=== PATIENT | female | born 1995 | race Caucasian/White ===

== ENCOUNTER 2016-09-16 14:07 | Outpatient (CLI) ==
[2016-02-13 10:00] VITALS: BMI 38.2
--- NOTE | 2016-09-16 14:35 | DI ---
EXAM: Left foot three views HISTORY: Pain in left foot COMPARISON: None FINDINGS: The bones are normal. The joints are normal. No focal soft tissue abnormality. IMPERSSION: Normal examination.
--- NOTE | 2016-09-16 14:43 | DI ---
EXAM: Radiographs, left ankle HISTORY: Initial presentation for left ankle sprain. COMPARISON: None. TECHNIQUE: Three views. FINDINGS: Bone mineralization is normal. There is no fracture or dislocation. The joint spaces ar e maintained. No focal soft tissue abnormality is seen. IMPRESSION: No fracture or dislocation.
== END 2016-09-16 14:08 | disposition home or self-care (01) ==
LOC: RAD 14:07
PROVIDERS: ATTEND Nurse Practitioner Family
DX: S93.402A Sprain of unspecified ligament of left ankle, initial encounter (principal); S99.912A Unspecified injury of left ankle, initial encounter; M79.672 Pain in left foot; S99.922A Unspecified injury of left foot, initial encounter

== ENCOUNTER 2016-09-25 08:53 | Outpatient (CLI) ==
[2016-02-13 10:00] VITALS: BMI 38.2
--- NOTE | 2016-09-25 14:06 | MRI ---
EXAM: MRI left forefoot without contrast COMPARISON: Left foot radiographs 09/16/2016. HISTORY: Medial left foot and ankle pain after stepping in a hole. TECHNIQUE: Multiplanar noncontrast MR images of the left midfoot and forefoot were acquired using a 1.5 Tila magnet. FINDINGS: Degenerative changes of the first metatarsophalangeal joint with joint space narrowing. Chronic-appearing deformity with some flattening of the articular surface of the first metatarsal he ad which may represent sequela of old trauma without acute osseous injury that site. Small first me tatarsophalangeal joint effusion. Intermetatarsal bursitis involving the first interspace at the le ye of the metatarsophalangeal joints to a lesser extent the distal second and third interspaces. 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 Dorsal oste ophytes at the talonavicular joint. Intact Lisfranc ligament fibers are identified. There is subcutaneous edema along the plantar aspec t of the metatarsophalangeal joints without a focal soft tissue ulcer or drainable fluid collection. No full-thickness tendon tear or tendon retraction. IMPRESSION: 1. No acute osseous injury. Degenerative changes of the first metatarsophalangeal joint with chron ic-appearing deformity/flattening of the first metatarsal head which may represent sequela old traum a or chronic sequela of osteonecrosis. Small first metatarsophalangeal joint effusion. 2. Partial osseous/fibrous calcaneonavicular correlation with secondary degenerative changes. 3. Intermetatarsal bursitis. 4. Low-level subcutaneous edema.
== END 2016-09-25 08:54 | disposition home or self-care (01) ==
LOC: RAD 08:53
PROVIDERS: ATTEND Nurse Practitioner Family
DX: M79.672 Pain in left foot (principal); S99.922A Unspecified injury of left foot, initial encounter

== ENCOUNTER 2016-12-09 23:07 | Emergency (ER) ==
[2016-12-09 23:20] VITALS: TEMP 98.6; BMI 41.1
--- NOTE | 2016-12-09 23:25 | ED.PDOC ---
General ED Provider: Dr. ALLISON ZAMAN Chief Complaint: Earache Stated Complaint: Patient woke from sleep thinking something in the left ear, she did try with q tip, did not help. Time Seen by Physician: 23:22 Mode of Arrival: Walk-In Information Source: Patient Primary Care Provider: ALLISON ZAMAN[facility] Nursing and Triage Documentation Reviewed and Agree: Yes EENT Complaint Exam - Ear Complaint/Exam Symptoms Are: Still present Timing: Constant Initial Severity: Mild Current Severity: Mild Aggravating: Reports: Foreign body Alleviating: Reports: None Associated Signs and Symptoms: Denies: Ear trauma, Ear swelling, Discharge, Fever, Hearing loss, Bleeding, Sore throat, Headache, URI symptoms, Foreign body sensation, Rash, Pain to external ear, Pain to external face Ear Surgical History: None Vesicles to External Pinna: No Vesicles to Tragus: No TMJ Tenderness: None Mastoid Tenderness: None Tragal Tenderness: None External Canal: Normal Material in Canal: Present: Cerumen Differential Diagnoses: Foreign Body, URI Review of Systems - Review Of Systems Constitutional: Reports: No symptoms Eyes: Reports: No symptoms Ears, Nose, Mouth, Throat: Reports: No symptoms Respiratory: Reports: No symptoms Cardiac: Reports: No symptoms GI: Reports: No symptoms : Reports: No symptoms Musculoskeletal: Reports: No symptoms Skin: Reports: No symptoms Neurological: Reports: No symptoms Endocrine: Reports: No symptoms Hematologic/Lymphatic: Reports: No symptoms All Other Systems: Reviewed and Negative Past Medical History - Past Medical History Previously Healthy: Yes Endocrine: Reports: None Cardiovascular: Reports: None Respiratory: Reports: None Hematological: Reports: None Gastrointestinal: Reports: None Genitourinary: Reports: None Neuro/Psych: Reports: None Musculoskeletal: Reports: None Cancer: Reports: None Last Menstrual Period: 1 week ago - Surgical History General Surgical History: Reports: None - Family History Family History: Reports: Other (sister in law had developed cough after her and now resolved no one else with cough) - Social History Smoking Status: Never smoker Hx Substance Use: No Alcohol Screening: None - Immunizations Tetanus Shot up to Date: Yes Physical Exam - Physical Exam Appearance: Well-appearing, No pain distress, Well-nourished Eyes: JONO, EOMI, Conjunctiva clear ENT: Ears normal (no FB seen), Nose normal, Oropharynx normal Respiratory: Airway patent, Breath sounds clear, Breath sounds equal, Respirations nonlabored Cardiovascular: RRR, Pulses normal, No rub, No murmur GI/: Soft, Nontender, No masses, Bowel sounds normal, No Organomegaly Musculoskeletal: Normal strength, ROM intact, No edema, No calf tenderness Skin: Warm, Dry, Normal color Neurological: Sensation intact, Motor intact, Reflexes intact, Cranial nerves intact, Alert, Oriented Psychiatric: Affect appropriate, Mood appropriate Critical Care Note - Critical Care Note Total Time (mins): 0 Course - Course Vital Signs: Temp Pulse Resp BP Pulse Ox 12/09/16 23:08 98.6 F 105 H 20 148/100 H 98 Departure - Departure Time of Disposition: 23:26 Disposition: HOME SELF-CARE Discharge Problem: Ear problem Condition: Stable Pt referred to PMD for follow-up: Yes Additional Instructions: keep checking the blood pressure needs f/u with PMD re check blood pressure in 2-3 days. Allergies/Adverse Reactions: Allergies No Known Allergies Allergy (Verified 12/09/16 23:12) Home Medications: Ambulatory Orders Multivitamin 1 cap PO DAILY 10/05/15 Disposition Discussed With: Patient, Family
[2016-12-09 23:39] VITALS: BP 130/87
== END 2016-12-09 23:45 | disposition home or self-care (01) ==
LOC: ED 23:07
DX: H92.02 Otalgia, left ear (principal); R03.0 Elevated blood-pressure reading, without diagnosis of hypertension
CPT/HCPCS: 99282

== ENCOUNTER 2016-12-24 09:21 | Outpatient (CLI) ==
--- NOTE | 2016-12-24 09:57 | DI ---
EXAM: Right foot three views HISTORY: Plantar fascial fibromatosis COMPARISON: None FINDINGS: The bones are normal. The joints are normal. No focal soft tissue abnormality. IMPERSSION: Normal examination.
== END 2016-12-24 09:22 | disposition home or self-care (01) ==
LOC: RAD 09:21
PROVIDERS: ATTEND Nurse Practitioner Family
DX: M72.2 Plantar fascial fibromatosis (principal)

== ENCOUNTER 2017-08-29 13:23 | Outpatient (CLI) | END 2017-08-29 13:24 | disposition home or self-care (01) | LOC: LAB 13:23 | PROVIDERS: ATTEND Emergency Medicine | DX: R68.89 Other general symptoms and signs (principal); J06.9 Acute upper respiratory infection, unspecified | CPT/HCPCS: 87502; 87651 ==

== ENCOUNTER 2018-07-09 11:11 | Emergency (ER) ==
[2018-07-09 11:14] VITALS: BP 120/82; TEMP 97.6; BMI 40.2
--- NOTE | 2018-07-09 11:37 | ED.PDOC ---
General ED Provider: Dr. KOBY WHITFIELD Chief Complaint: Dizziness Stated Complaint: 23 y/o Female patient CC Dizziness and Rt Sided orbital pain and headache. She states was attempting into get her Car, striking the side of her head/lateral orbial/zygomatic region againt the door frame. States she felt stunned, had a blackout moment but did not lose consciousness. Has been experiencing dizziness ever since and has not felt well. Was seen by Nicole at clinic today who referred to ER for evaluation. Time Seen by Physician: 12:05 Mode of Arrival: Walk-In Information Source: Patient Exam Limitations: No limitations Primary Care Provider: NICOLE NÚÑEZ Seen Within Last 72 Hours for Same Complaint By: Clinic Nursing and Triage Documentation Reviewed and Agree: Yes Does patient meet sepsis criteria?: No System Inflammatory Response Syndrome: Not Applicable Sepsis Protocol: For patient's 13 years and over: Temp is 96.8 and below OR 101 and greater Pulse >90 BPM Resp >20/minute Acutely Altered Mental Status Are patient's symptoms suggestive of a new infection, such as: -Pneumonia -Skin, Soft Tissue -Endocarditis -UTI -Bone, Joint Infection -Implantable Device -Acute Abdominal Infection -Wound Infection -Meningitis -Blood Stream Catheter Infection -Unknown Neurological Complaint Exam - Dizziness Complaint/Exam Last Known Well: Before incident Onset: Sudden Duration: 1 Timing: Intermittent Episodes Lasting: Minutes Initial Severity: Severe Current Severity: Mild Character: Reports: Lightheaded Aggravating: Reports: Position change Alleviating: Reports: Rest, Closing eyes Associated Signs and Symptoms: Reports: Nausea Cardiac Risk Factors: Reports: None CVA Risk Factors: Reports: None Related Surgical History: Reports: None JVD Present: No Carotid Bruit Present: No Nystagmus Present: No Gag Reflex Present: Yes Meningeal Signs Positive: No Focal Weakness: Present: None Focal Sensory Loss: Present: None Gait: Normal [id number]: Normal Findings Romberg Test Positive: No Heel to Toe Normal: Yes Differential Diagnoses: Anxiety, Vasovagal reaction, Other (blunt trauma) Review of Systems - Review Of Systems Constitutional: Reports: No symptoms Eyes: Reports: No symptoms Ears, Nose, Mouth, Throat: Reports: No symptoms Respiratory: Reports: No symptoms Cardiac: Reports: No symptoms GI: Reports: No symptoms : Reports: No symptoms Musculoskeletal: Reports: No symptoms Skin: Reports: No symptoms Neurological: Reports: No symptoms Endocrine: Reports: No symptoms Hematologic/Lymphatic: Reports: No symptoms All Other Systems: Reviewed and Negative Past Medical History - Past Medical History Previously Healthy: Yes Endocrine: Reports: None Cardiovascular: Reports: None Respiratory: Reports: None Hematological: Reports: None Gastrointestinal: Reports: None Genitourinary: Reports: None Neuro/Psych: Reports: None Musculoskeletal: Reports: None Cancer: Reports: None Last Menstrual Period: 06/18/19 - Surgical History General Surgical History: Reports: None - Family History Family History: Reports: Other (sister in law had developed cough after her and now resolved no one else with cough) - Social History Smoking Status: Never smoker Hx Substance Use: No Alcohol Screening: None - Immunizations Tetanus Shot up to Date: No Physical Exam - Physical Exam Appearance: Well-appearing, No pain distress, Well-nourished Eyes: JONO, EOMI, Conjunctiva clear ENT: Ears normal, Nose normal, Oropharynx normal Respiratory: Airway patent, Breath sounds clear, Breath sounds equal, Respirations nonlabored Cardiovascular: RRR, Pulses normal, No rub, No murmur GI/: Soft, Nontender, No masses, Bowel sounds normal, No Organomegaly Musculoskeletal: Normal strength, ROM intact, No edema, No calf tenderness Skin: Warm, Dry, Normal color Neurological: Sensation intact, Motor intact, Reflexes intact, Cranial nerves intact, Alert, Oriented Psychiatric: Affect appropriate, Mood appropriate Re-Evaluation - Re-Evaluation Time of Re-Evaluation: 14:05 Status: Improved Vital Signs Stable: Yes Appearance: NAD Lungs: Clear Skin: Warm and Dry Neuro: Alert and Oriented X3 CV: RRR Critical Care Note - Critical Care Note Total Time (mins): 0 Course - Course Hematology/Chemistry: 07/09/18 12:30 07/09/18 12:30 Orders, Labs, Meds: Lab Review 07/09/18 07/09/18 07/09/18 12:25 12:25 12:30 WBC 9.96 RBC 4.70 Hgb 13.1 Hct 38.5 MCV 81.9 MCH 27.9 MCHC 34.0 RDW Coeff of Garett 12.5 Plt Count 342 Immature Gran % (Auto) 0.7 Neut % (Auto) 49.5 Lymph % (Auto) 39.0 Burt % (Auto) 8.7 Eos % (Auto) 1.6 Baso % (Auto) 0.5 Immature Gran # (Auto) 0.1 Neut # (Auto) 4.9 Lymph # (Auto) 3.9 H Burt # (Auto) 0.9 Eos # (Auto) 0.2 Baso # (Auto) 0.1 Sodium Potassium Chloride Carbon Dioxide Anion Gap BUN Creatinine Estimated GFR (MDRD) BUN/Creatinine Ratio Glucose Calcium Total Bilirubin AST ALT Alkaline Phosphatase Total Protein Albumin Globulin Albumin/Globulin Ratio Urine Color Yellow Urine Clarity Cloudy Urine pH 7.0 Ur Specific [place] 1.025 Urine Protein 2+ Urine Glucose (UA) Negative Urine Ketones Trace Urine Blood Trace-lysed Urine Nitrite Negative Urine Bilirubin Negative Urine Urobilinogen 2.0 Ur Leukocyte Esterase 1+ Urine Microscopic RBC 0-2 Urine Microscopic WBC 2-5 Ur Squamous Epith Cells 50-100 Urine Bacteria 1+ Urine Test Negative 07/09/18 12:30 WBC RBC Hgb Hct MCV MCH MCHC RDW Coeff of Garett Plt Count Immature Gran % (Auto) Neut % (Auto) Lymph % (Auto) Burt % (Auto) Eos % (Auto) Baso % (Auto) Immature Gran # (Auto) Neut # (Auto) Lymph # (Auto) Burt # (Auto) Eos # (Auto) Baso # (Auto) Sodium 139.5 Potassium 3.49 L Chloride 101.8 Carbon Dioxide 31.5 H Anion Gap 9.69 BUN 6.3 L Creatinine 0.79 Estimated GFR (MDRD) 89.00 BUN/Creatinine Ratio 7.97 Glucose 83.1 Calcium 9.04 Total Bilirubin 0.45 AST 46.2 H ALT 29.5 Alkaline Phosphatase 62.5 Total Protein 7.80 Albumin 4.49 Globulin 3.31 Albumin/Globulin Ratio 1.35 Urine Color Urine Clarity Urine pH Ur Specific [place] Urine Protein Urine Glucose (UA) Urine Ketones Urine Blood Urine Nitrite Urine Bilirubin Urine Urobilinogen Ur Leukocyte Esterase Urine Microscopic RBC Urine Microscopic WBC Ur Squamous Epith Cells Urine Bacteria Urine Test Orders Category Date Time Status CBC W/ AUTO DIFF Stat LAB 07/09/18 12:30 Completed CMP [COMPREHENSIVE METABOLIC PANEL] Stat LAB 07/09/18 12:30 Completed UA [URINALYSIS C & S IF INDICATED] Stat LAB 07/09/18 12:25 Completed URINE CULTURE Stat LAB 07/09/18 12:25 Completed URINE Stat LAB 07/09/18 12:[address] HEAD W/O CONTRAST Stat RADS 07/09/18 12:09 Completed Vital Signs: Temp Pulse Resp BP Pulse Ox 07/09/18 11:11 97.6 F 80 16 120/82 97 Departure - Departure Time of Disposition: 13:45 Disposition: HOME SELF-CARE Discharge Problem: Blunt force injury, Contusion of right eyelid Instructions: Contusion in Adults (ED) Condition: Good Pt referred to PMD for follow-up: Yes (1wk) IPMP verified?: No Additional Instructions: NO Work today Ice to area of soreness Ibuprofen for pain as directed Prescriptions: Meclizine HCl [Antivert] 25 mg PO TID PRN #10 tablet PRN Reason: Nausea or dizziness Allergies/Adverse Reactions: Allergies No Known Allergies Allergy (Verified 07/09/18 11:14) Home Medications: Ambulatory Orders Meclizine HCl [Antivert] 25 mg PO TID PRN #10 tablet 07/09/18 Disposition Discussed With: Patient
[2018-07-09 13:06] LABS: URINE PREGNANCY TEST NEGATIVE (NEGATIVE)
--- NOTE | 2018-07-09 13:13 | CT ---
EXAM: CT head without contrast. HISTORY: Initial presentation for right-sided head/zygomatic trauma. COMPARISON: None available. TECHNIQUE: Multiple axial images of the brain were obtained from the skull base through the vertex w ithout intravenous contrast. Multiplanar reformats were provided. FINDINGS: There is no intracranial hemorrhage or extraaxial collection. The tobias-white differentiat ion is maintained without evidence for acute large vascular territory infarction. The cortical sulci and basal cisterns are well visualized. There is no hydrocephalus, mass effect, or midline shift. The paranasal sinuses and mastoid air cells are clear. The calvarium is intact. IMPRESSION: No acute intracranial abnormality.
== END 2018-07-09 14:05 | disposition home or self-care (01) ==
LOC: ED 11:11
DX: S00.11XA Contusion of right eyelid and periocular area, initial encounter (principal); R42 Dizziness and giddiness; R51 Headache; W22.8XXA Striking against or struck by other objects, initial encounter
CPT/HCPCS: 36415; 80053; 81001; 81025; 85025; 87086; 99283

== ENCOUNTER 2018-09-09 12:23 | Emergency (ER) | payer MEDICAID, OTHER ==
[2018-09-09 12:28] VITALS: BP 136/84; TEMP 96.8; BMI 39.8
--- NOTE | 2018-09-09 13:02 | ED.PDOC ---
General ED Provider: Dr. MARIA M SALINAS Chief Complaint: Tooth Problem Stated Complaint: DENTAL PAIN Time Seen by Physician: 12:30 Mode of Arrival: Walk-In Information Source: Patient Exam Limitations: No limitations Primary Care Provider: NICOLE NÚÑEZ Nursing and Triage Documentation Reviewed and Agree: Yes Does patient meet sepsis criteria?: No System Inflammatory Response Syndrome: Not Applicable Sepsis Protocol: For patient's 13 years and over: Temp is 96.8 and below OR 101 and greater Pulse >90 BPM Resp >20/minute Acutely Altered Mental Status Are patient's symptoms suggestive of a new infection, such as: -Pneumonia -Skin, Soft Tissue -Endocarditis -UTI -Bone, Joint Infection -Implantable Device -Acute Abdominal Infection -Wound Infection -Meningitis -Blood Stream Catheter Infection -Unknown EENT Complaint Exam - Dental/Oral Complaint/Exam Mechanism of Injury: No known trauma Onset/Duration: TODAY Symptoms Are: Still present Timing: Constant Initial Severity: Mild Current Severity: Mild Character: Reports: Dull Aggravating: Reports: None Alleviating: Reports: None Associated Signs and Symptoms: Denies: Swelling, Discharge, Fever, Foul odor, Foul taste in mouth Related History: Reports: Similar episode Cardiac Risk Factors: Reports: None Dental/Oral Surgical History: Reports: None Tooth Findings: Present: Gross decay, Gross caries, Dental fracture Cervical Lymphadenopathy Present: No Facial Swelling Present: No Bleeding Present: No Oropharynx Findings: Absent: Clots, Active bleeding Septal Hematoma: No Foreign Body Present: No Dysphagia Present: No Drooling Present: No Asymmetrical Tonsillar Swelling Present: No Uvula Midline: Yes Malorie-tonsillar Fluctuence: No Trismus Present: No Palatal Petechiae Present: No Scarlatinaform Rash Present: No Lesions: Absent: Lip, Gums, Tongue, Buccal Mucosa, Pharynx Teeth Picture: 1 - DECAY Differential Diagnoses: Fractured Tooth Review of Systems - Review Of Systems Constitutional: Reports: No symptoms Eyes: Reports: No symptoms Ears, Nose, Mouth, Throat: Reports: No symptoms Respiratory: Reports: No symptoms Cardiac: Reports: No symptoms GI: Reports: No symptoms : Reports: No symptoms Musculoskeletal: Reports: No symptoms Skin: Reports: No symptoms Neurological: Reports: No symptoms Endocrine: Reports: No symptoms Hematologic/Lymphatic: Reports: No symptoms All Other Systems: Reviewed and Negative Past Medical History - Past Medical History Previously Healthy: Yes Endocrine: Reports: None Cardiovascular: Reports: None Respiratory: Reports: None Hematological: Reports: None Gastrointestinal: Reports: None Genitourinary: Reports: None Neuro/Psych: Reports: None Musculoskeletal: Reports: None Cancer: Reports: None Last Menstrual Period: 09-05-2018 - Surgical History General Surgical History: Reports: None - Family History Family History: Reports: Other (sister in law had developed cough after her and now resolved no one else with cough) - Social History Smoking Status: Never smoker Hx Substance Use: No Alcohol Screening: None Physical Exam - Physical Exam Appearance: Well-appearing, No pain distress, Well-nourished Eyes: JONO, EOMI, Conjunctiva clear ENT: Ears normal, Nose normal, Oropharynx normal Respiratory: Airway patent, Breath sounds clear, Breath sounds equal, Respirations nonlabored Cardiovascular: RRR, Pulses normal, No rub, No murmur GI/: Soft, Nontender, No masses, Bowel sounds normal, No Organomegaly Musculoskeletal: Normal strength, ROM intact, No edema, No calf tenderness Skin: Warm, Dry, Normal color Neurological: Sensation intact, Motor intact, Reflexes intact, Cranial nerves intact, Alert, Oriented Psychiatric: Affect appropriate, Mood appropriate Critical Care Note - Critical Care Note Total Time (mins): 0 Course - Course Vital Signs: Temp Pulse Resp BP Pulse Ox 09/09/18 12:23 96.8 F L 77 20 136/84 98 Departure - Departure Time of Disposition: 13:02 Disposition: HOME SELF-CARE Discharge Problem: Toothache Instructions: Toothache (ED) Condition: Good Pt referred to PMD for follow-up: Yes IPMP verified?: No Allergies/Adverse Reactions: Allergies No Known Allergies Allergy (Verified 09/09/18 12:29) Home Medications: Ambulatory Orders 1 [No Reported Medications] 09/09/18 Disposition Discussed With: Patient
== END 2018-09-09 13:13 | disposition home or self-care (01) ==
LOC: ED 12:23
DX: K08.89 Other specified disorders of teeth and supporting structures (principal); K02.7 Dental root caries; S02.5XXA Fracture of tooth (traumatic), initial encounter for closed fracture
CPT/HCPCS: 99282

== ENCOUNTER 2018-10-04 06:26 | Emergency (ER) ==
[2018-10-04 06:33] VITALS: BP 141/85; TEMP 98.2; BMI 41.1
--- NOTE | 2018-10-04 06:39 | ED.PDOC ---
General ED Provider: Dr. KOBY WHITFIELD Chief Complaint: Tooth Problem Stated Complaint: Has bad tooth ache. Not releived by tylenol or advil. Time Seen by Physician: 06:30 Mode of Arrival: Walk-In Information Source: Patient Exam Limitations: No limitations Primary Care Provider: NICOLE NÚÑEZ Nursing and Triage Documentation Reviewed and Agree: Yes Does patient meet sepsis criteria?: No System Inflammatory Response Syndrome: Not Applicable Sepsis Protocol: For patient's 13 years and over: Temp is 96.8 and below OR 101 and greater Pulse >90 BPM Resp >20/minute Acutely Altered Mental Status Are patient's symptoms suggestive of a new infection, such as: -Pneumonia -Skin, Soft Tissue -Endocarditis -UTI -Bone, Joint Infection -Implantable Device -Acute Abdominal Infection -Wound Infection -Meningitis -Blood Stream Catheter Infection -Unknown EENT Complaint Exam - Dental/Oral Complaint/Exam Mechanism of Injury: Unknown Symptoms Are: Still present Timing: Constant Initial Severity: Moderate Current Severity: Severe Character: Reports: Aching, Throbbing Aggravating: Reports: Cold, Chewing Alleviating: Reports: None Associated Signs and Symptoms: Denies: Swelling, Discharge, Fever, Foul odor, Foul taste in mouth Related History: Reports: Similar episode Cardiac Risk Factors: Reports: None Dental/Oral Surgical History: Reports: None Tooth Findings: Present: Percussion tenderness, Gross caries Cervical Lymphadenopathy Present: No Facial Swelling Present: No Bleeding Present: No Septal Hematoma: No Foreign Body Present: No Dysphagia Present: No Drooling Present: No Asymmetrical Tonsillar Swelling Present: No Uvula Midline: No Malorie-tonsillar Fluctuence: No Trismus Present: No Palatal Petechiae Present: No Scarlatinaform Rash Present: No Lesions: Absent: Lip, Gums, Tongue, Buccal Mucosa, Pharynx Exanthem: Absent: Lip, Gums, Tongue, Buccal Mucosa, Pharynx Vesicles: Absent: Lip, Gums, Tongue, Buccal Mucosa, Pharynx Differential Diagnoses: Dental Caries Review of Systems - Review Of Systems Constitutional: Reports: No symptoms Eyes: Reports: No symptoms Ears, Nose, Mouth, Throat: Reports: No symptoms, Mouth pain Respiratory: Reports: No symptoms Cardiac: Reports: No symptoms GI: Reports: No symptoms : Reports: No symptoms Musculoskeletal: Reports: No symptoms Skin: Reports: No symptoms Neurological: Reports: No symptoms Endocrine: Reports: No symptoms Hematologic/Lymphatic: Reports: No symptoms All Other Systems: Reviewed and Negative Past Medical History - Past Medical History Previously Healthy: Yes Endocrine: Reports: None Cardiovascular: Reports: None Respiratory: Reports: None Hematological: Reports: None Gastrointestinal: Reports: None Genitourinary: Reports: None Neuro/Psych: Reports: None Musculoskeletal: Reports: None Cancer: Reports: None Last Menstrual Period: now - Surgical History General Surgical History: Reports: None - Family History Family History: Reports: Other (sister in law had developed cough after her and now resolved no one else with cough) - Social History Smoking Status: Never smoker Hx Substance Use: No Alcohol Screening: None - Immunizations Tetanus Shot up to Date: Yes Physical Exam - Physical Exam Appearance: Well-appearing, No pain distress, Well-nourished Ill-appearing: None Pain Distress: Mild Eyes: JONO, EOMI, Conjunctiva clear ENT: Ears normal, Nose normal, Oropharynx normal (Open cavity tender to touch rt molar 1 -maxillary region ) Respiratory: Airway patent, Breath sounds clear, Breath sounds equal, Respirations nonlabored Cardiovascular: RRR, Pulses normal, No rub, No murmur GI/: Soft, Nontender, No masses, Bowel sounds normal, No Organomegaly Musculoskeletal: Normal strength, ROM intact, No edema, No calf tenderness Skin: Warm, Dry, Normal color Neurological: Sensation intact, Motor intact, Reflexes intact, Cranial nerves intact, Alert, Oriented Psychiatric: Affect appropriate, Mood appropriate Critical Care Note - Critical Care Note Total Time (mins): 0 Course - Course Vital Signs: Temp Pulse Resp BP Pulse Ox 10/04/18 06:27 98.2 F 70 20 141/85 H 98 Departure - Departure Time of Disposition: 06:50 Disposition: HOME SELF-CARE Discharge Problem: Toothache, Dental abscess Instructions: Dental Abscess (ED), Toothache (ED) Condition: Good Pt referred to PMD for follow-up: Yes (See dentist kirby) IPMP verified?: No Additional Instructions: Take meds as directed Follow up with Dentist Rinse mouth with warm salt water Allergies/Adverse Reactions: Allergies No Known Allergies Allergy (Verified 10/04/18 06:32) Home Medications: Ambulatory Orders Amoxicillin 875 mg PO BID #20 tablet 10/04/18 Hydrocodone Bit/Acetaminophen [[place] 5-325] 1 each PO Q4HR PRN #15 tablet Disposition Discussed With: Patient
== END 2018-10-04 07:10 | disposition home or self-care (01) ==
LOC: ED 06:26
DX: K08.89 Other specified disorders of teeth and supporting structures (principal); K04.7 Periapical abscess without sinus; K02.7 Dental root caries
CPT/HCPCS: 99282

== ENCOUNTER 2019-02-10 14:02 | Emergency (ER) ==
[2019-02-10 14:08] VITALS: BP 137/89; TEMP 98.4; BMI 39.7
[2019-02-10] MEDS ORDERED: SODIUM CHLORIDE 1,000 ML IV STA (14:34)
--- NOTE | 2019-02-10 15:17 | US ---
EXAM: ULTRASOUND ABDOMEN LIMITED HISTORY: Abdominal pain FINDINGS: Ultrasound abdomen, limited. Dhillon-scale ultrasound and color Doppler was performed. Live r size was measured at 11.6 cm, within normal limits. The liver parenchyma demonstrated normal sonogr aphic appearance without evidence of intrahepatic biliary dilatation or focal lesion. Patent and hep atopedal main portal vein. There are multiple stones within the gallbladder and probable small volume gallbladder sludge as wel l. The gallbladder wall thickness remained within normal limits at 0.15 cm. The common bile duct di ameter was measured at 0.87 cm which is dilated. No ascites identified. Visualized pancreas was wit hin normal limits. Survey of the right kidney revealed no hydronephrosis. IMPRESSION: 1. Multiple gallstones with no gallbladder wall thickening or ascites although there has common bile duct dilatation.
--- NOTE | 2019-02-10 15:43 | ED.PDOC ---
General ED Provider: Dr. MARIA M SALINAS Chief Complaint: Abdominal Pain Stated Complaint: abdominal pain Time Seen by Physician: 14:00 (seen with her nurse at all times denied injury) Mode of Arrival: Walk-In Information Source: Patient, Assisted Living Exam Limitations: No limitations Primary Care Provider: NICOLE NÚÑEZ Nursing and Triage Documentation Reviewed and Agree: Yes Does patient meet sepsis criteria?: No System Inflammatory Response Syndrome: Not Applicable Sepsis Protocol: For patient's 13 years and over: Temp is 96.8 and below OR 101 and greater Pulse >90 BPM Resp >20/minute Acutely Altered Mental Status Are patient's symptoms suggestive of a new infection, such as: -Pneumonia -Skin, Soft Tissue -Endocarditis -UTI -Bone, Joint Infection -Implantable Device -Acute Abdominal Infection -Wound Infection -Meningitis -Blood Stream Catheter Infection -Unknown GI Complaint Exam - Abdominal Pain Complaint/Exam Onset: Gradual Duration: this morning Symptoms Are: Resolved Timing: Intermittent Initial Severity: Moderate Current Severity: None Location of Pain: RUQ, LLQ, Epigastric Radiates To: Denies: Chest, Back, Flank, LLQ, RLQ, Inguinal Character: Reports: Dull, Aching Aggravating: Reports: None Alleviating: Reports: Spontaneous resolution Associated Signs and Symptoms: Denies: Diaphoresis, Fever, Cough, Chest pain, Dizziness, Back pain, Constipation, Blood in stool, Dysuria, Urinary frequency, Decreased urine output, Decreased appetite, Vaginal bleeding, Vaginal discharge , Nausea, Vomiting, Diarrhea, Sore throat, Decreased activity AAA Risk Factors: Reports: None Cardiac Risk Factors: Reports: None Ectopic Risk Factors: Reports: None Ovarian Torsion Risk Factors: Reports: None Surgical Obstruction Risk Factors: Reports: None Related Surgical History: Reports: None Patient Rh Status: Unknown Abdominal Findings: Present: None, Other (no pelvic exam done) Female Body Picture: 1 - no localized guarding orrebound Differential Diagnoses: Constipation Review of Systems - Review Of Systems Constitutional: Reports: No symptoms Eyes: Reports: No symptoms Ears, Nose, Mouth, Throat: Reports: No symptoms Respiratory: Reports: No symptoms Cardiac: Reports: No symptoms GI: Reports: Abdominal pain : Reports: No symptoms Musculoskeletal: Reports: No symptoms Skin: Reports: No symptoms Neurological: Reports: No symptoms Endocrine: Reports: No symptoms Hematologic/Lymphatic: Reports: No symptoms All Other Systems: Reviewed and Negative Past Medical History - Past Medical History Previously Healthy: Yes Endocrine: Reports: None Cardiovascular: Reports: None Respiratory: Reports: None Hematological: Reports: None Gastrointestinal: Reports: None Genitourinary: Reports: None Neuro/Psych: Reports: None Musculoskeletal: Reports: None Cancer: Reports: None Last Menstrual Period: Varies (Approximately 2 months ago) - Surgical History General Surgical History: Reports: None - Family History Family History: Reports: Other (sister in law had developed cough after her and now resolved no one else with cough) - Social History Smoking Status: Never smoker Hx Substance Use: Yes (Marijuana Occasionally) Alcohol Screening: None - Immunizations Tetanus Shot up to Date: Yes Physical Exam - Physical Exam Appearance: Well-appearing, No pain distress, Well-nourished Eyes: JONO, EOMI, Conjunctiva clear ENT: Ears normal, Nose normal, Oropharynx normal Respiratory: Airway patent, Breath sounds clear, Breath sounds equal, Respirations nonlabored Cardiovascular: RRR, Pulses normal, No rub, No murmur GI/: Soft, Nontender, No masses, Bowel sounds normal, No Organomegaly Musculoskeletal: Normal strength, ROM intact, No edema, No calf tenderness Skin: Warm, Dry, Normal color Neurological: Sensation intact, Motor intact, Reflexes intact, Cranial nerves intact, Alert, Oriented Psychiatric: Affect appropriate, Mood appropriate Interpretation - Radiology Interpretation Radiology Results: Positive (multiple gall stones) Critical Care Note - Critical Care Note Total Time (mins): 0 Course - Course Hematology/Chemistry: 02/10/19 14:42 02/10/19 14:42 Orders, Labs, Meds: Lab Review 02/10/19 02/10/19 02/10/19 14:42 14:42 14:42 WBC 9.25 RBC 5.02 Hgb 14.1 Hct 41.2 MCV 82.1 MCH 28.1 MCHC 34.2 RDW Coeff of Garett 12.6 Plt Count 323 Immature Gran % (Auto) 0.6 Neut % (Auto) 70.9 Lymph % (Auto) 21.2 [place] % (Auto) 5.8 Eos % (Auto) 1.0 Baso % (Auto) 0.5 Immature Gran # (Auto) 0.1 Neut # (Auto) 6.6 Lymph # (Auto) 2.0 [place] # (Auto) 0.5 Eos # (Auto) 0.1 Baso # (Auto) 0.1 Sodium 139.0 Potassium 4.10 Chloride 102.0 Carbon Dioxide 28.0 Anion Gap 13.10 BUN 7.0 Creatinine 0.70 Estimated GFR (MDRD) 102.00 BUN/Creatinine Ratio 10.00 Glucose 112.0 H Calcium 10.10 Total Bilirubin 0.60 AST 36.0 ALT 36.0 H Alkaline Phosphatase 68.0 Total Creatine Kinase 78.0 Troponin I < 0.012 Total Protein 8.10 Albumin 4.20 Globulin 3.90 Albumin/Globulin Ratio 1.07 Serum , Qual Negative Urine Color Urine Clarity Urine pH Ur Specific [place] Urine Protein Urine Glucose (UA) Urine Ketones Urine Blood Urine Nitrite Urine Bilirubin Urine Urobilinogen Ur Leukocyte Esterase Ur Squamous Epith Cells 02/10/19 14:42 WBC RBC Hgb Hct MCV MCH MCHC RDW Coeff of Garett Plt Count Immature Gran % (Auto) Neut % (Auto) Lymph % (Auto) [place] % (Auto) Eos % (Auto) Baso % (Auto) Immature Gran # (Auto) Neut # (Auto) Lymph # (Auto) [place] # (Auto) Eos # (Auto) Baso # (Auto) Sodium Potassium Chloride Carbon Dioxide Anion Gap BUN Creatinine Estimated GFR (MDRD) BUN/Creatinine Ratio Glucose Calcium Total Bilirubin AST ALT Alkaline Phosphatase Total Creatine Kinase Troponin I Total Protein Albumin Globulin Albumin/Globulin Ratio Serum , Qual Urine Color Yellow Urine Clarity Clear Urine pH 7.0 Ur Specific [place] 1.020 Urine Protein Negative Urine Glucose (UA) Negative Urine Ketones Negative Urine Blood Negative Urine Nitrite Negative Urine Bilirubin Negative Urine Urobilinogen 0.2 Ur Leukocyte Esterase Negative Ur Squamous Epith Cells Not present Orders Category Date Time Status NPO REMINDER: IMAGING ONCE CARE 02/10/19 14:34 Completed ED IV/MEDIPORT/POWERPORT .ONCE EMERGENCY 02/10/19 14:34 Active CBC W/ AUTO DIFF Stat LAB 02/10/19 14:42 Completed COMPREHENSIVE METABOLIC PANEL Stat LAB 02/10/19 14:42 Completed CREATINE KINASE Stat LAB 02/10/19 14:42 Completed SERUM Stat LAB 02/10/19 14:42 Completed TROPONIN I Stat LAB 02/10/19 14:42 Completed UA [URINALYSIS C & S IF INDICATED] Stat LAB 02/10/19 14:42 Completed 0.9 % Sodium Chloride [Saline Flush] MEDS 02/10/19 14:34 Active 1 syr IVF PRN PRN Sodium Chloride 0.9% [Sodium Chloride] 1,000 ml MEDS 02/10/19 14:34 Active IV 125 mls/hr ULTRASOUND ABDOMEN, RT. UPPER QUAD [U/S ABDOMEN RT RADS 02/10/19 14:34 Completed UPPER QUAD] Stat Medications Generic Name Dose Route Start Last Admin Trade Name Freq PRN Reason Stop Dose Admin Sodium Chloride 1,000 mls @ 125 mls/hr 02/10/19 14:34 02/10/19 14:50 Sodium Chloride IV 02/10/19 22:33 125 mls/hr .Q8H STA Administration Sodium Chloride 1 syr 02/10/19 14:34 02/10/19 14:49 Saline Flush IVF 1 syr PRN PRN Administration To flush IV Vital Signs: Temp Pulse Resp BP Pulse Ox 02/10/19 14:03 98.4 F 78 16 137/89 97 Departure - Departure Time of Disposition: 15:44 Disposition: HOME SELF-CARE Discharge Problem: Abdominal pain Instructions: Gallstones (ED), Biliary Colic (ED), Low Fat Diet (ED), Acute Nausea and Vomiting (ED) Condition: Good Pt referred to PMD for follow-up: Yes IPMP verified?: No Additional Instructions: Please call your Family Physician as soon as possible to schedule a follow-up appointment. Allergies/Adverse Reactions: Allergies No Known Allergies Allergy (Verified 02/10/19 14:18) Home Medications: Ambulatory Orders 1 [No Reported Medications] 02/10/19 Disposition Discussed With: Patient
== END 2019-02-10 16:08 | disposition home or self-care (01) ==
LOC: ED 14:02
DX: R10.9 Unspecified abdominal pain (principal)
CPT/HCPCS: 36415; 80053; 81001; 82550; 84484; 84703; 85025; 96360; 99283

== ENCOUNTER 2019-04-17 11:23 | Emergency (ER) ==
[2019-04-17 11:32] VITALS: BP 121/85; TEMP 98.1; BMI 39.2
--- NOTE | 2019-04-17 12:55 | ED.PDOC ---
General ED Provider: Dr. KOBY WHITFIELD Chief Complaint: Non-specific Complaint Stated Complaint: Abdominal wall issues s/p Lap Cholecystectomy. Has serous / drainage at MEMO Drain site.No drainage disecting down under op site. Skin erythera lower abdomen under op site dressing -non tender no crepitance. Time Seen by Physician: 12:20 Mode of Arrival: Walk-In Information Source: Patient Primary Care Provider: NICOLE NÚÑEZ Referred to ED by: Other (surgeon Dr Agee in [place]) Nursing and Triage Documentation Reviewed and Agree: Yes Does patient meet sepsis criteria?: No System Inflammatory Response Syndrome: Not Applicable Sepsis Protocol: For patient's 13 years and over: Temp is 96.8 and below OR 101 and greater Pulse >90 BPM Resp >20/minute Acutely Altered Mental Status Are patient's symptoms suggestive of a new infection, such as: -Pneumonia -Skin, Soft Tissue -Endocarditis -UTI -Bone, Joint Infection -Implantable Device -Acute Abdominal Infection -Wound Infection -Meningitis -Blood Stream Catheter Infection -Unknown Review of Systems - Review Of Systems Constitutional: Reports: No symptoms Eyes: Reports: No symptoms Ears, Nose, Mouth, Throat: Reports: No symptoms Respiratory: Reports: No symptoms Cardiac: Reports: No symptoms GI: Reports: No symptoms : Reports: No symptoms Musculoskeletal: Reports: No symptoms Skin: Reports: No symptoms Neurological: Reports: No symptoms Endocrine: Reports: No symptoms Hematologic/Lymphatic: Reports: No symptoms All Other Systems: Reviewed and Negative Past Medical History - Past Medical History Previously Healthy: Yes Endocrine: Reports: None Cardiovascular: Reports: None Respiratory: Reports: None Hematological: Reports: None Gastrointestinal: Reports: None Genitourinary: Reports: None Neuro/Psych: Reports: None Musculoskeletal: Reports: None Cancer: Reports: None Last Menstrual Period: april 05 - - Surgical History General Surgical History: Reports: None - Family History Family History: Reports: Other (sister in law had developed cough after her and now resolved no one else with cough) - Social History Smoking Status: Never smoker Hx Substance Use: Yes (pot) Alcohol Screening: None - Immunizations Tetanus Shot up to Date: Yes Physical Exam - Physical Exam Appearance: Well-appearing, No pain distress, Well-nourished, Obese Eyes: JONO, EOMI, Conjunctiva clear ENT: Ears normal, Nose normal, Oropharynx normal Respiratory: Airway patent, Breath sounds clear, Breath sounds equal, Respirations nonlabored Cardiovascular: RRR, Pulses normal, No rub, No murmur GI/: Soft, Nontender, No masses, Bowel sounds normal, No Organomegaly Musculoskeletal: Normal strength, ROM intact, No edema, No calf tenderness Skin: Warm, Dry, Normal color Neurological: Sensation intact, Motor intact, Reflexes intact, Cranial nerves intact, Alert, Oriented Psychiatric: Affect appropriate, Mood appropriate Critical Care Note - Critical Care Note Total Time (mins): 0 Course - Course Hematology/Chemistry: 04/17/19 13:16 04/17/19 13:16 Orders, Labs, Meds: Lab Review 04/17/19 04/17/19 13:16 13:16 WBC 10.17 RBC 4.34 Hgb 12.3 Hct 37.7 MCV 86.9 MCH 28.3 MCHC 32.6 RDW Coeff of Garett 13.2 Plt Count 308 Immature Gran % (Auto) 0.9 Neut % (Auto) 52.6 Lymph % (Auto) 37.7 [place] % (Auto) 7.2 Eos % (Auto) 1.2 Baso % (Auto) 0.4 Immature Gran # (Auto) 0.1 Neut # (Auto) 5.4 Lymph # (Auto) 3.8 H [place] # (Auto) 0.7 Eos # (Auto) 0.1 Baso # (Auto) 0.0 Sodium 140.6 Potassium 3.72 Chloride 105.7 Carbon Dioxide 29.5 Anion Gap 9.12 BUN 7.0 Creatinine 0.76 Estimated GFR (MDRD) 92.00 BUN/Creatinine Ratio 9.21 Glucose 89.8 Calcium 8.84 Total Bilirubin 0.43 AST 29.0 ALT 27.9 Alkaline Phosphatase 52.0 Total Protein 6.85 Albumin 3.89 Globulin 2.96 Albumin/Globulin Ratio 1.31 Orders Category Date Time Status CBC W/ AUTO DIFF Stat LAB 04/17/19 13:16 Completed CMP [COMPREHENSIVE METABOLIC PANEL] Stat LAB 04/17/19 13:16 Completed ABDOMEN, SERIES FLAT & UPRIGHT Stat RADS 04/17/19 12:55 Completed Vital Signs: Temp Pulse Resp BP Pulse Ox 04/17/19 11:25 98.1 F 71 18 121/85 95 Departure - Departure Time of Disposition: 14:20 Disposition: HOME SELF-CARE Discharge Problem: Dressing change or removal, surgical wound Instructions: Wound Healing and Your Diet (ED), Care For Your Absorbable Stitches (ED) Condition: Stable Pt referred to PMD for follow-up: Yes IPMP verified?: No Prescriptions: Cephalexin [Keflex] 500 mg PO Q12HR #10 capsule Allergies/Adverse Reactions: Allergies No Known Allergies Allergy (Uncoded 04/17/19 11:54) Home Medications: Ambulatory Orders Docusate Sodium [Stool Softener] 100 mg PO BID 04/17/19 Oxycodone HCl/Acetaminophen [Percocet 5-325 mg Tablet] 1 - 2 each PO Q4HR PRN Disposition Discussed With: Patient, Family Additional Information: Spoke with Surgeon Dr Sabino Key at [facility] and reviewed case. Requested tegaderm dressings be removed Assess wounds Completed/ no redness at incision site and no active bleeding or drainage Nursing Redressd and secured To follow up with surgeorn next week as directed Reassement of lower abdom wound . minimal reddness appearing seconday to tegaderm .area non warm to touch Advised to disregard RX fo Keflex
--- NOTE | 2019-04-17 13:26 | DI ---
Exam: Two-view abdomen. Date: 04/17/2019. Comparison: None. HISTORY: Redness and swelling around incision site of cholecystectomy. FINDINGS: No free air is seen under the diaphragm. The lumbar spine and bony pelvis are within norm al limits. A drain is observed in the right upper quadrant and probable cholecystectomy clips are pr esent. Gas is scattered throughout nondistended loops of small bowel and colon. No suspicious xochilt s or calcifications are observed. Impression: No acute findings. There is evidence of recent surgery in the right upper quadrant and a drain is in place. No visible free air or evidence of small bowel or colonic obstruction.
== END 2019-04-17 15:37 | disposition home or self-care (01) ==
LOC: ED 11:23
DX: Z48.01 Encounter for change or removal of surgical wound dressing (principal); Z90.49 Acquired absence of other specified parts of digestive tract; Z98.890 Other specified postprocedural states
CPT/HCPCS: 36415; 80053; 85025; 99283

== ENCOUNTER 2019-04-24 14:48 | Emergency (ER) ==
[2019-04-24 14:53] VITALS: BP 130/83; TEMP 97.3; BMI 39.3
--- NOTE | 2019-04-24 15:55 | ED.PDOC ---
General ED Provider: Dr. SUJIT CHARLES Chief Complaint: Respiratory Complaint Stated Complaint: 4 days of cough productive of some sputum. Recently had gall bladder surgery had some drainage post op and placed on Antibiotics which she just finished. Denies any fever. Time Seen by Physician: 15:15 Mode of Arrival: Walk-In Information Source: Patient Primary Care Provider: NOEL MAGANA Nursing and Triage Documentation Reviewed and Agree: Yes Does patient meet sepsis criteria?: No System Inflammatory Response Syndrome: Not Applicable Sepsis Protocol: For patient's 13 years and over: Temp is 96.8 and below OR 101 and greater Pulse >90 BPM Resp >20/minute Acutely Altered Mental Status Are patient's symptoms suggestive of a new infection, such as: -Pneumonia -Skin, Soft Tissue -Endocarditis -UTI -Bone, Joint Infection -Implantable Device -Acute Abdominal Infection -Wound Infection -Meningitis -Blood Stream Catheter Infection -Unknown Respiratory Complaint Exam - Respiratory Complaint/Exam Onset/Duration: 4 days Symptoms Are: Still present Timing: Intermittent Initial Severity: Moderate Current Severity: Mild Location: Throat, Chest Character: Reports: Productive cough Aggravating: Reports: URI, Weather Alleviating: Reports: None Associated Signs and Symptoms: Reports: URI. Denies: Rapid breathing, Dyspnea, Fever, Chills, Chest pain, Pleuritic chest pain, Wheezing, Hemoptysis, Dizziness , Calf pain, Calf swelling, Edema, Nasal congestion, Hoarseness, Sinus discomfort, Vomiting, Sore throat, Weight loss, Decreased oral intake, Increased thirst, Increased appetite, Increased urination Related History: Reports: Seasonal allergies. Denies: Similar episode, Allergic reaction History of Healthcare-Acquired Pneumonia: No Related Surgical History: Reports: None Pulmonary Embolism Risk Factors: None Cardiac Risk Factors: Reports: None Pseudomonas Risk Factors: Reports: None Tuberculosis Risk Factors: Reports: None Status Asthmaticus Risk Factors: Reports: None Home Oxygen Use: No Recent Stress Test: No Recent Echo/LV Function: No Current Antibiotic Use: No Current Asthma Medication Use: No Respiratory Distress: None Inadequate Respiratory Effort: No Dysphagia Present: No Stridor Present: No JVD Present: No Accessory Muscle Use: No Retractions: Not Present Diminished Breath Sounds: No Sinus Tenderness: None Grunting Respirations: No Kussmaul Respirations: No Differential Diagnoses: Pneumonia, Bronchitis Review of Systems - Review Of Systems Constitutional: Reports: No symptoms Eyes: Reports: No symptoms Ears, Nose, Mouth, Throat: Reports: Nose discharge Respiratory: Reports: Cough Cardiac: Reports: No symptoms GI: Reports: No symptoms : Reports: No symptoms Musculoskeletal: Reports: No symptoms Skin: Reports: No symptoms Neurological: Reports: No symptoms Endocrine: Reports: No symptoms Hematologic/Lymphatic: Reports: No symptoms All Other Systems: Reviewed and Negative Past Medical History - Past Medical History Previously Healthy: Yes Endocrine: Reports: None Cardiovascular: Reports: None Respiratory: Reports: None Hematological: Reports: None Gastrointestinal: Reports: None Genitourinary: Reports: None Neuro/Psych: Reports: None Musculoskeletal: Reports: None Cancer: Reports: None Last Menstrual Period: april 05 - Surgical History General Surgical History: Reports: None - Family History Family History: Reports: Other (sister in law had developed cough after her and now resolved no one else with cough) - Social History Smoking Status: Never smoker Hx Substance Use: (pot) Alcohol Screening: None - Immunizations Tetanus Shot up to Date: Yes Physical Exam - Physical Exam Appearance: Obese Eyes: JONO, EOMI, Conjunctiva clear ENT: Ears normal, Nose normal, Oropharynx normal Neck: Supple Respiratory: Airway patent, Breath sounds clear, Breath sounds equal, Respirations nonlabored Cardiovascular: RRR, Pulses normal, No rub, No murmur Musculoskeletal: ROM intact Skin: Warm, Dry, Normal color Neurological: Sensation intact, Motor intact, Cranial nerves intact, Alert, Oriented Psychiatric: Affect appropriate, Mood appropriate Critical Care Note - Critical Care Note Total Time (mins): 0 Course - Course Vital Signs: Temp Pulse Resp BP Pulse Ox 04/24/19 14:48 97.3 F L 81 18 130/83 98 Departure - Departure Time of Disposition: 15:53 Disposition: HOME SELF-CARE Discharge Problem: Viral URI with cough Instructions: Acute Cough (ED) Condition: Stable Pt referred to PMD for follow-up: Yes IPMP verified?: No Additional Instructions: Push fluids Follow up with PCP in 3 days Allergies/Adverse Reactions: Allergies No Known Allergies Allergy (Uncoded 04/24/19 15:05) Home Medications: Ambulatory Orders 1 [No Reported Medications] 04/24/19 Disposition Discussed With: Patient
== END 2019-04-24 16:05 | disposition home or self-care (01) ==
LOC: ED 14:48
DX: J06.9 Acute upper respiratory infection, unspecified (principal); Z98.890 Other specified postprocedural states
CPT/HCPCS: 99281